=== PATIENT | female | born 1965 | race Two or more races ===

== ENCOUNTER 2017-01-01 09:00 | Outpatient (RCR) ==
--- NOTE | 2016-12-11 15:51 | RS.PTSUM ---
Progress Note/Summary Date of Note: 12/11/16 Date of Evaluation: 07/10/16 Current Complaints/Gains: Patient reports benefit from laser has been temporary. She asks about coming to therapy for laser once a week or every couple weeks. States her shoulders have been giving her a lot of trouble. Also reports going on a trip to [place] the week before [place], and since then her low back has been more painful. Objective Measurements/Presentation: Patient receives Laser treatment at multiple areas: shoulders, lateral epicondyles, wrist, cervical, lumbar, and SI joints. G Codes: NA Source of G Code Score: NA - Short Term Goals Goal #1: Pain consistently <5/10. Goal to be met by: 01/10/17 Progress towards Goal:: Progressing Goal #2: Bilateral SLR to 55 degrees. Goal to be met by: 01/10/17 Progress towards Goal:: Progressing - Fdc Goals Goal #1: Patient to report pain consistently <3/10. Goal to be met by: 03/11/17 Progress towards goal: Progressing Goal #2: Patient to demonstrate improved postural awareness. Goal to be met by: 03/11/17 Progress towards goal: Progressing - Assessment Assessment of Improvement/Progress: Reports improvement with laser treatments. She would like to cut down to once a week or once every two weeks. - Plan Plan: Continue Plan of Care PLAN OF CARE EXPIRES ON:: 03/11/17 ORDER # VISITS AND/OR THROUGH DATE: 03/11/17
== END 2017-01-06 ==
PROVIDERS: ATTEND Physical Medicine & Rehabilitation
DX: M79.1 Myalgia (principal); M54.2 Cervicalgia; M25.512 Pain in left shoulder; M25.511 Pain in right shoulder; M54.5 Low back pain; M25.552 Pain in left hip; M25.551 Pain in right hip
CPT/HCPCS: 97039

== ENCOUNTER 2017-01-15 09:00 | Outpatient (RCR) | END 2017-02-06 | PROVIDERS: ATTEND Physical Medicine & Rehabilitation | DX: M79.1 Myalgia (principal); M54.2 Cervicalgia; M25.511 Pain in right shoulder; M25.512 Pain in left shoulder; M54.5 Low back pain; M25.551 Pain in right hip; M25.552 Pain in left hip | CPT/HCPCS: 97039 ==

== ENCOUNTER 2017-06-04 09:00 | Outpatient (RCR) ==
--- NOTE | 2017-05-25 08:13 | RS.OPPTDN ---
Subjective Date of Note: 05/20/17 Date of Evaluation: 07/10/16 Payer Source: Insurance Treatment Diagnosis: Myofascial pain of neck, shoulders, lumbar paraspinals Current Subjective/complaints:: Patient reports significant increased neck pain over the last month. Reports pain into the UE's, to the hands. She has been using her cervical traction at home and it has not helped. *Precautions: ALLERGIC TO ADHESIVES Pain Assessment - Pain Description Pain Location: Multiple sites including neck, shoulders, wrists, thoracic and lumbar spine Current Pain Intensity: not quantified today - Treatment Modality: Class 4 Laser Parameters/Method Applied: X 90 mins of laser to multiple areas including: cervical, thoracic, shoulder, elbows, wrists, lumbar, and SI joints. Interventions - Exercise/Activities/Manual Therapy Exercises/Activities: Instructed patient in stretching of the median, ulnar, and radial nerves bilaterally. Also given instruction of therapeutic poundage range of 20-30 lbs. on cervical traction and recommend hold times of 30 secs to 2 mins. Manual Therapy: NA HOME EXERCISE PROGRAM: Neural streching: ulnar, median, and radial - Charges Total Direct Minutes: 90 mins Total Treatment Time: 110 mins Procedures billed for this date of service:: Laser X5 Assessment: Patient with aggrevation of neck pain and UE's symptoms. She is hoping to get decreased pain again with use of laser. Short Term Goals Goal #1: Pain consistently <5/10. Goal to be met by: 06/24/17 Goal #2: Pt independent in stretching exercises. Goal to be met by: 06/24/17 Document Control Manager Goals Goal #1: Patient to report pain consistently <3/10. Goal to be met by: 08/23/17 Goal #2: Patient to demonstrate improved postural awareness. Goal to be met by: 08/23/17 Plan PLAN OF CARE EXPIRES ON:: 08/23/17 ORDER # VISITS AND/OR THROUGH DATE: 08/23/17 PLAN: Continue Plan of Care
--- NOTE | 2017-06-04 10:33 | RS.OPPTDN ---
Subjective Date of Note: 06/04/17 Date of Evaluation: 07/10/16 Payer Source: Insurance Treatment Diagnosis: Myofascial pain of neck, shoulders, lumbar paraspinals Current Subjective/complaints:: Patient states she had accupuncture and cupping performed on her last week. Reports more mobility in her lumbar spine. States she has so much more mobility that she can tell that she needs to strengthen her back. *Precautions: ALLERGIC TO ADHESIVES Pain Assessment - Pain Description Pain Location: Multiple sites including neck, shoulders, wrists, thoracic and lumbar spine Current Pain Intensity: not quantified today - Treatment Modality: Class 4 Laser Parameters/Method Applied: variety of programs, mainly chronic pain Interventions - Exercise/Activities/Manual Therapy Exercises/Activities: none today Manual Therapy: NA HOME EXERCISE PROGRAM: Neural streching: ulnar, median, and radial - Charges Total Direct Minutes: 65 mins Total Treatment Time: 65 mins Procedures billed for this date of service:: Laser X 3 Assessment: Patient reports increased lumbar mobility. Reports benefit from each laser treatment. Patient demonstrates compliance with HEP?: Yes Short Term Goals Goal #1: Pain consistently <5/10. Goal to be met by: 06/24/17 Goal #2: Pt independent in stretching exercises. Goal to be met by: 06/24/17 Detention Goals Goal #1: Patient to report pain consistently <3/10. Goal to be met by: 08/23/17 Goal #2: Patient to demonstrate improved postural awareness. Goal to be met by: 08/23/17 Plan PLAN OF CARE EXPIRES ON:: 08/23/17 ORDER # VISITS AND/OR THROUGH DATE: 08/23/17 PLAN: Continue Plan of Care
== END 2017-06-08 ==
PROVIDERS: ATTEND Physical Medicine & Rehabilitation
DX: M79.1 Myalgia (principal)
CPT/HCPCS: 97039

== ENCOUNTER → 2017-07-09 | Outpatient (RCR) | PROVIDERS: ATTEND Physical Medicine & Rehabilitation | DX: M79.1 Myalgia (principal) | CPT/HCPCS: 97039 ==

== ENCOUNTER 2017-08-06 09:00 | Outpatient (RCR) | END 2017-08-08 | PROVIDERS: ATTEND Physical Medicine & Rehabilitation | DX: M79.1 Myalgia (principal) | CPT/HCPCS: 97039 ==

== ENCOUNTER 2017-09-28 09:00 | Outpatient (RCR) | END 2017-10-08 | PROVIDERS: ATTEND Physical Medicine & Rehabilitation | DX: M79.1 Myalgia (principal) | CPT/HCPCS: 97039 ==

== ENCOUNTER 2017-11-06 09:00 | Outpatient (RCR) | END 2017-11-08 | PROVIDERS: ATTEND Family Medicine | DX: M79.1 Myalgia (principal); M54.2 Cervicalgia; M25.512 Pain in left shoulder; M25.511 Pain in right shoulder; M54.5 Low back pain; M25.559 Pain in unspecified hip | CPT/HCPCS: 97039 ==

== ENCOUNTER 2018-11-29 10:00 | Outpatient (RCR) ==
--- NOTE | 2018-11-29 10:39 | RS.CSNOTE ---
PT Case Note Date of Note: 11/29/18 Note: Unable to perform treatment today due to laser overheating and shutting off within seconds of starting treatment.
--- NOTE | 2018-11-29 10:46 | RS.PTSUM ---
Progress Note/Summary Date of Note: 11/24/18 Date of Evaluation: 07/10/16 Current Complaints/Gains: She has just now has gotten permission from her Oncologist to return to therapy for laser treatment. She had a lumpectomy and 11 lymphnodes removed from the left breast and axilla. States her left flank/ ribcage region is hypersensitive. She decribes pain at the base of the skull bilaterally, shoulders, thoracic and lumbar spine, and SI joints. Describes peripheral neuropathy since having radiation. Discussed whether we should do laser to the left shoulder and left flank region. Agreed to wait until I could do more research to whether it is safe to perform laser to the left flank area. Objective Measurements/Presentation: Patient demonstrates functional AROM of the left shoulder. Demonstrates port to the right anterior chest wall. This is to be removed in two weeks. G Codes: NA Source of G Code Score: nA - Short Term Goals Goal #1: Pain consistently <4/10. Goal to be met by: 12/24/18 Goal #2: Pt independent in stretching exercises. Goal to be met by: 12/24/18 - Longterm Goals Goal #1: Patient to report pain consistently <3/10. Goal to be met by: 02/22/19 Goal #2: Patient to demonstrate improved postural awareness. Goal to be met by: 02/22/19 Progress towards goal: Progressing - Plan Plan: Continue Plan of Care Frequency: 1-3 X week Dates of Automotive Worker Foreman Goals: 02/22/19 Expiration date of current Insurance Approval:: NA
--- NOTE | 2018-11-29 10:53 | RS.OPPTDN ---
Subjective Date of Note: 11/25/18 Visit #: 2 Number of visits approved by Insurance: NA Date of Evaluation: 07/10/16 Payer Source: Insurance Treatment Diagnosis: Myofascial pain of neck, shoulders, lumbar paraspinals Current Subjective/complaints:: Patient states she could not tell much difference after laser yesterday. During laser today to the lower thoracic, she states she can feel the muscles relax. *Precautions: ALLERGIC TO ADHESIVES - Treatment Modality: Class 4 Laser Parameters/Method Applied: Patient received laser to thoracic and lumbar spine, right scapula/shoulder joint, bilateral wrist and thumbs, and base of great toe bilaterally. Interventions - Exercise/Activities/Manual Therapy Exercises/Activities: none today Manual Therapy: NA HOME EXERCISE PROGRAM: Neural streching: ulnar, median, and radial - Charges Timed Code Treatment Minutes: 45 mins Total Treatment Time: 65 mins Procedures billed for this date of service:: Laser X 2 Short Term Goals Goal #1: Pain consistently <4/10. Goal to be met by: 12/24/18 Goal #2: Pt independent in stretching exercises. Goal to be met by: 12/24/18 Food [employer] Beverage Outlets Manager Goals Goal #1: Patient to report pain consistently <3/10. Goal to be met by: 02/22/19 Goal #2: Patient to demonstrate improved postural awareness. Goal to be met by: 02/22/19 Progress towards goal: Progressing Plan Dates of Half-Way Goals: 02/22/19 Expiration date of current Insurance Approval:: NA PLAN: Continue treatment as tolerated for pain relief.
== END 2018-12-09 23:59 ==
PROVIDERS: ATTEND Family Medicine
DX: M79.10 Myalgia, unspecified site (principal)
CPT/HCPCS: 97039